=== PATIENT | female | born 1975 | race Caucasian/White ===

== ENCOUNTER 2017-08-14 18:55 | Emergency (ER) | payer BC ==
[2017-08-14 19:05] VITALS: BP 121/71
[2017-08-14] MEDS ORDERED: Acetaminophen/HYDROcodone 325-5 MG Tab PO ONE (19:13)
[2017-08-14] MEDS ORDERED: Diphtheria,Pertussis(Acell),Tetanus Vaccine 0.5 ML SDV IM ONE (19:13)
--- NOTE | 2017-08-14 19:32 | EDM.PDOC ---
ED HPI GENERAL MEDICAL PROBLEM - General Chief Complaint: Upper Extremity Injury/Pain Stated Complaint: poss arm injury Time Seen by Provider: 08/14/17 19:07 Source of Information: Reports: Patient, RN Notes Reviewed - History of Present Illness INITIAL COMMENTS - FREE TEXT/NARRATIVE: 42-year-old female suffered dogbite injury left forearm. Her son's dog and her dog got into a fight. She tried to break it up and her own dog, a boxer bit her on the left forearm. She also ended up falling onto the arm so she has pain from the bite and from the fall. Major discomfort is in the area of the bite dorsal midforearm. Her dog is up-to-date with rabies. She has no idea of her last tetanus immunization. No other pain or injury from this incident Left Arm Pain Score (Numeric/FACES): 7 - Related Data Allergies Allergy/AdvReac Type Severity Reaction Status Date / Time Penicillins Allergy Hives Verified 08/14/17 19:02 bandaide Allergy Itching Uncoded 08/14/17 19:02 tequin Allergy Hives Uncoded 08/14/17 19:02 Home Meds: Home Meds Estradiol [Climara] 0.05 mg TOP SUWE 01/31/15 [History] FLUoxetine [PROzac] 0 mg PO DAILY 01/31/15 [History] Hydrochlorothiazide 25 mg PO DAILY 01/31/15 [History] Doxycycline [Vibramycin] 100 mg PO Q12HR #20 cap 08/14/17 [Rx] Past Medical History Musculoskeletal History: Reports: RA Psychiatric History: Reports: Depression Endocrine/Metabolic History: Reports: Diabetes, Type I Social & Family History - Tobacco Use Smoking Status *Q: Never Smoker Second Hand Smoke Exposure: No - Alcohol Use Days Per Week of Alcohol Use: 1 Number of Drinks Per Day: 1 Total Drinks Per Week: 1 - Recreational Drug Use Recreational Drug Use: No Review of Systems - Review of Systems Review Of Systems: See Below Constitutional: Reports: No Symptoms Respiratory: Denies: Shortness of Breath Cardiovascular: Denies: Chest Pain GI/Abdominal: Denies: Nausea, Vomiting Musculoskeletal: Reports: Arm Pain (Left midforearm) Skin: Reports: Other (To bite puncture [place] left midforearm) Neurological: Denies: Numbness, Tingling, Weakness ED EXAM, GENERAL - Physical Exam Exam: See Below General Appearance: Alert, Moderate Distress Head: Atraumatic Neck: Supple, Full Range of Motion Respiratory/Chest: No Respiratory Distress Peripheral Pulses: 4+: Radial (L) Extremities: Other (2 puncture bite wounds to left forearm, small, not bleeding at this time, localized swelling and tenderness left mid forearm, no visible deformity.) Neurological: Alert, Oriented, No Motor/Sensory Deficits Skin Exam: Warm, Dry, Normal Color Course - Vital Signs Last Recorded V/S: Last Vital Signs Temp 97.6 F 08/14/17 19:02 Pulse 102 H 08/14/17 19:02 Resp BP 121/71 08/14/17 19:02 Pulse Ox 100 08/14/17 19:02 - Orders/Labs/Meds Orders: Active Orders 24 hr Category Date Time Status Vaccines to be Administered [RC] PER UNIT ROUTINE Care 08/14/17 19:14 Active Forearm 2V Lt [CR] Stat Exams 08/14/17 19:14 Taken Meds: Medications Discontinued Medications Generic Name Dose Route Start Last Admin Trade Name Maricruz PRN Reason Stop Dose Admin Hydrocodone Bitart/Acetaminophen 1 tab 08/14/17 19:13 08/14/17 19:30 [place] 325-5 Mg PO 08/14/17 19:14 1 tab ONETIME ONE Administration Diphtheria/Tetanus/Acell Pertussis 0.5 ml 08/14/17 19:13 08/14/17 19:30 Adacel IM 08/14/17 19:14 0.5 ml .ONCE ONE Administration - Re-Assessments/Exams Free Text/Narrative Re-Assessment/Exam: 08/14/17 19:48 X-rays no fracture Departure - Departure Time of Disposition: 19:48 Disposition: Home, Self-Care 01 Condition: Fair Clinical Impression: Injury caused by dog bite Qualifiers: Encounter type: initial encounter Qualified Code(s): W54.0XXA - Bitten by dog, initial encounter - Discharge Information Prescriptions: Doxycycline [Vibramycin] 100 mg PO Q12HR #20 cap Referrals: PCP,None [Primary Care Provider] - Forms: ED Department Discharge Additional Instructions: Antibiotic ointment 2-3 times daily, Doxycycline 100 mg twice daily for 10 days or until gone, you may alternate Tylenol and ibuprofen as needed for discomfort , have rechecked any sign of infection. Swelling and discomfort should gradually improve over the next 2-3 days. - My Orders Last 24 Hours: My Active Orders 08/14/17 19:14 Vaccines to be Administered [RC] PER UNIT ROUTINE Forearm 2V Lt [CR] Stat - Assessment/Plan Last 24 Hours: My Active Orders 08/14/17 19:14 Vaccines to be Administered [RC] PER UNIT ROUTINE Forearm 2V Lt [CR] Stat
--- NOTE | 2017-08-15 06:56 | CR ---
Left forearm: Two views of the left forearm were obtained. Comparison: No previous forearm study. Soft tissue swelling is identified. No acute fracture or other bony abnormality is identified. Impression: 1. Soft tissue swelling. 2. No bony abnormality is identified on left forearm study. Diagnostic code #2
== END 2017-08-14 20:15 | disposition home or self-care (01) ==
LOC: JD.ED 18:55
DX: S51.852A Open bite of left forearm, initial encounter (principal); Z88.0 Allergy status to penicillin; Z79.899 Other long term (current) drug therapy; Z23 Encounter for immunization; W54.0XXA Bitten by dog, initial encounter
CPT/HCPCS: 73090; 90471; 90715; 99284; A9270; 99283

== ENCOUNTER 2018-06-05 19:09 | Emergency (ER) | payer BC ==
[2018-06-05 19:28] VITALS: BP 134/91
--- NOTE | 2018-06-05 19:41 | EDM.PDOC ---
ED HPI GENERAL MEDICAL PROBLEM - General Chief Complaint: Respiratory Problem Stated Complaint: ear pain sore throat congestion Time Seen by Provider: 06/05/18 19:13 Source of Information: Reports: Patient History Limitations: Reports: No Limitations - History of Present Illness INITIAL COMMENTS - FREE TEXT/NARRATIVE: Patient with history of rheumatoid arthritis on Humira and methotrexate presents with onset of sinus pain mattery discharge to the right eye along with now cough and sore throat. She is concerned that she is developed worsening symptoms fairly rapidly over the last 24 hours and with her immune system dysfunction wants to make sure she has any more serious infection. She has some underlying exercise-induced asthma and has a harsh cough although nonproductive. She denies any fevers chills or sweats. Does feels sometimes lightheaded when she changes position but no syncope or near syncope. Some sore throat and feels like fluid in her ears left side greater than the right. She has tenderness in the area of the right maxilla and is having congestion 2 both sides of her nose. She occasionally uses Sudafed and has triamcinolone nose spray without much relief. She also has a history of diabetes on metformin. No shortness of breath no nausea vomiting or diarrhea no bowel changes no burning pain or blood in the urine. - Related Data Allergies Allergy/AdvReac Type Severity Reaction Status Date / Time adhesive Allergy Itching Verified 11/15/17 09:47 gatifloxacin Allergy Hives Verified 11/15/17 09:46 Penicillins Allergy Hives Verified 08/14/17 19:02 Home Meds: Home Meds Estradiol [Climara] 0.1 mg TOP SUWE 01/31/15 [History] Adalimumab [Humira Pen] 40 mg INJECT ASDIRECTED 06/05/18 [History] Albuterol [Ventolin HFA] 2 puff .XX Q4HR PRN #1 inhaler 06/05/18 [Rx] Codeine/Promethazine [Phenergan with Codeine] 5 ml PO Q4HR PRN #240 ml 06/05/18 [Rx] Gabapentin [Neurontin] 600 mg PO BEDTIME 06/05/18 [History] Lisinopril/Hydrochlorothiazide [Lisinopril-HCTZ 10-12.5 MG] 1 tab PO DAILY 06/05 [History] Lysine HCl [l-Lysine] 500 mg PO BEDTIME 06/05/18 [History] Meloxicam 15 mg PO DAILY 06/05/18 [History] Methotrexate Sodium [Methotrexate] 2.5 mg PO FR 06/05/18 [History] Simvastatin 20 mg PO BEDTIME 06/05/18 [History] Sulfamethoxazole/Trimethoprim [Septra DS] 1 tab PO BID #20 tab 06/05/18 [Rx] Venlafaxine HCl [Venlafaxine ER] 150 mg PO DAILY 06/05/18 [History] metFORMIN [Glucophage XR] 500 mg PO BEDTIME 06/05/18 [History] methylPREDNISolone [Medrol] 4 mg PO DAILY #1 dospk 06/05/18 [Rx] Past Medical History HEENT History: Reports: Sinusitis Cardiovascular History: Reports: High Cholesterol, Hypertension Musculoskeletal History: Reports: RA Psychiatric History: Reports: Depression Endocrine/Metabolic History: Reports: Diabetes, Type I ED ROS GENERAL - Review of Systems Review Of Systems: See Below Constitutional: Reports: Fatigue. Denies: Fever, Chills, Weakness HEENT: Reports: Ear Pain, Eye Discharge, Rhinitis, Sinus Problem, Throat Pain. Denies: Throat Swelling Respiratory: Reports: Cough. Denies: Shortness of Breath, Wheezing, Sputum Cardiovascular: Denies: Chest Pain GI/Abdominal: Denies: Abdominal Pain, Diarrhea, Nausea, Vomiting : Denies: Dysuria, Frequency Neurological: Denies: Headache ED EXAM, GENERAL - Physical Exam Exam: See Below Exam Limited By: No Limitations General Appearance: Alert, WD/WN, No Apparent Distress Ears: Normal External Exam, Normal Canal, Other (Fluid behind both eardrums but no signs of any redness) Ear Exam: Left Ear: Tenderness Nose: Nasal Tenderness, Nasal Swelling, Other (Inflammation to both turbinates bilateral nares. She also has right maxillary sinus tenderness) Throat/Mouth: Normal Inspection, Normal Teeth, Normal Gums, Normal Oropharynx, Normal Voice, No Airway Compromise Neck: Normal Inspection, Supple. No: Lymphadenopathy (L), Lymphadenopathy (R) Respiratory/Chest: No Respiratory Distress, Lungs Clear, Normal Breath Sounds, Rhonchi. No: Rales, Wheezing Cardiovascular: Normal Peripheral Pulses, Regular Rate, Rhythm GI/Abdominal: Normal Bowel Sounds, Soft, Non-Tender Neurological: Alert, Oriented Psychiatric: Normal Affect, Normal Mood Skin Exam: Warm, Dry Course - Vital Signs Text/Narrative:: Patient was a history of underlying immune dysfunction on Humira methotrexate for rheumatoid arthritis and diabetes on metformin presents with worsening symptoms in last 24-36 hours. 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 Said to have her next Humira injection this week and is concerned for serious infection. I do believe she does have what looks like some right sinus infection greater than the left and maybe early bronchitis with wheezing. Feel the benefits of an approximately the risks in light of her mean dysfunction. We'll place her on Bactrim DS twice a day for 10 days, cough syrup Phenergan with codeine elixir, albuterol inhaler , Medrol Dosepak. Off work tomorrow. Follow-up with primary care physician later this week, return to caution given Last Recorded V/S: Last Vital Signs Temp 98.0 F 06/05/18 19:27 MDT Pulse 107 H 06/05/18 19:27 MDT Resp 20 06/05/18 19:27 MDT BP 134/91 H 06/05/18 19:27 MDT Pulse Ox 100 06/05/18 19:27 MDT Departure - Departure Time of Disposition: 19:41 Disposition: Home, Self-Care 01 Clinical Impression: Sinusitis Qualifiers: Sinusitis location: maxillary Chronicity: acute Recurrence: non-recurrent Qualified Code(s): J01.00 - Acute maxillary sinusitis, unspecified Upper respiratory infection Qualifiers: URI type: unspecified URI Qualified Code(s): J06.9 - Acute upper respiratory infection, unspecified - Discharge Information Prescriptions: Albuterol [Ventolin HFA] 2 puff .XX Q4HR PRN #1 inhaler PRN Reason: Cough Codeine/Promethazine [Phenergan with Codeine] 5 ml PO Q4HR PRN #240 ml PRN Reason: Cough methylPREDNISolone [Medrol] 4 mg PO DAILY #1 dospk Sulfamethoxazole/Trimethoprim [Septra DS] 1 tab PO BID #20 tab Instructions: Asthma, Adult, Sinusitis, Adult, Acute Bronchitis, Adult, Easy-to -Read Referrals: PCP,None [Primary Care Provider] - Forms: ED Department Discharge, ED Return to Work/School Form Additional Instructions: Restaurant 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
== END 2018-06-05 20:00 | disposition home or self-care (01) ==
LOC: JD.ED 19:09
DX: J01.00 Acute maxillary sinusitis, unspecified (principal); J06.9 Acute upper respiratory infection, unspecified; I10 Essential (primary) hypertension; E10.9 Type 1 diabetes mellitus without complications; Z79.84 Long term (current) use of oral hypoglycemic drugs; Z88.0 Allergy status to penicillin; Z91.09 Other allergy status, other than to drugs and biological substances; Z88.1 Allergy status to other antibiotic agents; Z79.899 Other long term (current) drug therapy
CPT/HCPCS: 99283

== ENCOUNTER 2018-10-02 17:34 | Emergency (ER) | payer BC ==
[2018-10-02 17:46] VITALS: BP 147/91
--- NOTE | 2018-10-02 18:09 | EDM.PDOC ---
ED HPI GENERAL MEDICAL PROBLEM - General Chief Complaint: ENT Problem Stated Complaint: SORES IN EARS AND ON HANDS AND NOW HEAD CONGESTION Time Seen by Provider: 10/02/18 17:52 Source of Information: Reports: Patient History Limitations: Reports: No Limitations - History of Present Illness INITIAL COMMENTS - FREE TEXT/NARRATIVE: 43 year old female presents for evaluation and treatment of a sores to the left auricle and finger and sinus congestion. Patient first appreciated swelling, erythema and soreness to the left auricle in mid August. Denies any drainage from the area. Patient has also appreciated sore to the left ring finger over the last week. Does not recall any injury. Reports the areas on the finger will bleed and weep a clear serous fluid occasionally. Patient also reports for the few days she has developed cough, congestion, and post nasal drip. Patient reports she gets sinus infections every few months. Review of her records she was seen in the ER in June for a sinus infection. She was prescribed bactrim, albuterol, cough syrup and a medrol dos santosh. Currently symptoms include post nasal drip, cough, congestion or sinus pressure. Denies any fevers or headaches. Reports she has had sinus surgery previously for her chronic sinus problems. Patient has a past medical history and is currently on methotrexate and embral for her RA. She is concerned about the infections as she is immunocompromised. Left 4-Ring finger Pain Score (Numeric/FACES): 3 - Related Data Allergies Allergy/AdvReac Type Severity Reaction Status Date / Time adhesive Allergy Itching Verified 10/02/18 17:47 gatifloxacin Allergy Hives Verified 10/02/18 17:47 Penicillins Allergy Hives Verified 10/02/18 17:47 Home Meds: Home Meds Estradiol [Climara] 0.1 mg TOP SUWE 01/31/15 [History] Albuterol [Ventolin HFA] 2 puff .XX Q4HR PRN #1 inhaler 06/05/18 [Rx] Codeine/Promethazine [Phenergan with Codeine] 5 ml PO Q4HR PRN #240 ml 06/05/18 [Rx] Gabapentin [Neurontin] 600 mg PO BEDTIME 06/05/18 [History] Lisinopril/Hydrochlorothiazide [Lisinopril-HCTZ 10-12.5 MG] 1 tab PO DAILY 06/05 [History] Lysine HCl [l-Lysine] 500 mg PO BEDTIME 06/05/18 [History] Meloxicam 15 mg PO DAILY 06/05/18 [History] Methotrexate Sodium [Methotrexate] 2.5 mg PO FR 06/05/18 [History] Simvastatin 20 mg PO BEDTIME 06/05/18 [History] Venlafaxine HCl [Venlafaxine ER] 150 mg PO DAILY 06/05/18 [History] metFORMIN [Glucophage XR] 500 mg PO BEDTIME 06/05/18 [History] methylPREDNISolone [Medrol] 4 mg PO DAILY #1 dospk 06/05/18 [Rx] Doxycycline [Vibramycin] 100 mg PO BID #20 cap 10/02/18 [Rx] Etanercept [Enbrel] 1 dose SUBCUT WEEKLY 10/02/18 [History] Past Medical History HEENT History: Reports: Sinusitis Cardiovascular History: Reports: High Cholesterol, Hypertension [employer] History: Reports: Musculoskeletal History: Reports: RA Psychiatric History: Reports: Depression Endocrine/Metabolic History: Reports: Diabetes, Type I - Past Surgical History GI Surgical History: Reports: Appendectomy, Bariatric Procedure Female Surgical History: Reports: Section, Hysterectomy Social & Family History - Tobacco Use Smoking Status *Q: Never Smoker Second Hand Smoke Exposure: No - Caffeine Use Caffeine Use: Reports: Tea ED ROS ENT - Review of Systems Review Of Systems: See Below Constitutional: Denies: Fever HEENT: Reports: Ear Pain (left auricle), Sinus Problem. Denies: Ear Discharge, Throat Pain Respiratory: Reports: Cough Neurological: Denies: Headache ED EXAM, ENT - Physical Exam Exam: See Below Exam Limited By: No Limitations General Appearance: Alert, WD/WN, No Apparent Distress Ears: Normal Canal, Normal TMs, Auricular Erythema (left just superior to the meatus with associated swelling), Auricular Tenderness (left). No: Mastoid Swelling, Mastoid Tenderness, TM Bulging, TM Fluid Nose: Normal Inspection Mouth/Throat: Normal Inspection, Normal Lips, Normal Oropharynx Head: Sinus Tenderness (bilteral frontal and maxillary) Neck: Normal Inspection. No: Lymphadenopathy (L), Lymphadenopathy (R) Respiratory/Chest: No Respiratory Distress, Lungs Clear, Normal Breath Sounds Cardiovascular: Normal Peripheral Pulses, Regular Rate, Rhythm, No Murmur Extremities: Other (2 sores to the left 4th finger ulnar aspect, both approximately 1cm in lenth, slight surrounding pink skin changes, no swelling or drainage, slight tenderness wiht palpation) Neurological: Alert, Oriented, Normal Cognition Psychiatric: Normal Affect, Normal Mood Skin: Warm, Dry, Normal Color Course - Vital Signs Last Recorded V/S: Last Vital Signs Temp 97.1 F 10/02/18 17:41 Pulse 82 10/02/18 17:41 Resp 15 10/02/18 17:41 BP 147/91 H 10/02/18 17:41 Pulse Ox 100 10/02/18 17:41 - Re-Assessments/Exams Free Text/Narrative Re-Assessment/Exam: 10/02/18 18:03 Will treat with doxycycline for cellulites to the left auricle. This will also cover for a sinus infection if she has developed one. Discharge instructions as documented. Departure - Departure Time of Disposition: 18:06 Disposition: Home, Self-Care 01 Condition: Fair Clinical Impression: Cellulitis Upper respiratory infection Qualifiers: URI type: unspecified URI Qualified Code(s): J06.9 - Acute upper respiratory infection, unspecified - Discharge Information *PRESCRIPTION DRUG MONITORING PROGRAM REVIEWED*: No *COPY OF PRESCRIPTION DRUG MONITORING REPORT IN PATIENT PATRICIA: No Prescriptions: Doxycycline [Vibramycin] 100 mg PO BID #20 cap Instructions: Cellulitis, Adult Referrals: Susy Duarte MD [Primary Care Provider] - Forms: ED Department Discharge Additional Instructions: Take the doxycycline as prescribed 1 cap PO bid x 10 days. Take with food. May take OTC tylenol or motrin as needed for headaches and discomfort. Drink plenty of fluids . Follow-up with PCP or Sunday next week for a recheck of your symptoms. Please return to the ER should your symptoms change or worsen.
== END 2018-10-02 18:14 | disposition home or self-care (01) ==
LOC: JD.ED 17:34
DX: H60.12 Cellulitis of left external ear (principal); J06.9 Acute upper respiratory infection, unspecified; E78.00 Pure hypercholesterolemia, unspecified; I10 Essential (primary) hypertension; E10.9 Type 1 diabetes mellitus without complications; Z88.0 Allergy status to penicillin; Z88.1 Allergy status to other antibiotic agents; Z79.899 Other long term (current) drug therapy
CPT/HCPCS: 99283

== ENCOUNTER 2019-09-19 16:06 | Emergency (ER) | payer BC ==
--- NOTE | 2019-09-19 16:11 | EDM.PDOC ---
ED HPI GENERAL MEDICAL PROBLEM - General Chief Complaint: Respiratory Problem Stated Complaint: SORE THROAT Time Seen by Provider: 09/19/19 16:40 Source of Information: Reports: Patient History Limitations: Reports: No Limitations - History of Present Illness INITIAL COMMENTS - FREE TEXT/NARRATIVE: Patient is a 44-year-old female who presents with complaints of sore throat, chest congestion, loss of voice, and shortness of breath. She states that the symptoms began on Sunday of this week. She did see her primary care provider, Angie Louise, on Sunday and was told that she should follow-up if symptoms do not improve by Sunday. She states the symptoms have gotten progressively worse since Sunday. She verbalizes that the pain is deep in her throat and feels like razor blades when she coughs. She has been taking Sudafed, Rhinocort, and albuterol inhaler for symptoms. She does have a history of asthma. Denies fever, chills, nausea, vomiting, or diarrhea. She did have a flu shot this year. Patient does have RA and is on Enbrel. - Related Data Allergies Allergy/AdvReac Type Severity Reaction Status Date / Time adhesive Allergy Itching Verified 10/02/18 17:47 gatifloxacin Allergy Hives Verified 10/02/18 17:47 hydroxychloroquine Allergy Rash Verified 04/09/19 11:35 Penicillins Allergy Hives Verified 10/02/18 17:47 tetracaine [From Tetcaine] Allergy Hives Verified 09/19/19 16:20 Home Meds: Home Meds estradioL [Climara] 0.1 mg TOP SUWE 01/31/15 [History] Albuterol [Ventolin HFA] 2 puff .XX Q4HR PRN #1 inhaler 06/05/18 [Rx] Codeine/Promethazine [Phenergan with Codeine] 5 ml PO Q4HR PRN #240 ml 06/05/18 [Rx] Gabapentin [Neurontin] 600 mg PO BEDTIME 06/05/18 [History] Lisinopril/Hydrochlorothiazide [Lisinopril-HCTZ 10-12.5 MG] 1 tab PO DAILY 06/05 [History] Lysine HCl [l-Lysine] 500 mg PO BEDTIME 06/05/18 [History] Meloxicam 15 mg PO DAILY 06/05/18 [History] Methotrexate Sodium [Methotrexate] 2.5 mg PO FR 06/05/18 [History] Simvastatin 20 mg PO BEDTIME 06/05/18 [History] Venlafaxine HCl [Venlafaxine ER] 150 mg PO DAILY 06/05/18 [History] metFORMIN [Glucophage XR] 500 mg PO BEDTIME 06/05/18 [History] methylPREDNISolone [Medrol] 4 mg PO DAILY #1 dospk 06/05/18 [Rx] Doxycycline [Vibramycin] 100 mg PO BID #20 cap 10/02/18 [Rx] Etanercept [Enbrel] 1 dose SUBCUT WEEKLY 10/02/18 [History] dexAMETHasone [Dexamethasone] 4 mg PO BID 5 Days #10 tab 09/19/19 [Rx] Past Medical History HEENT History: Reports: Sinusitis Cardiovascular History: Reports: High Cholesterol, Hypertension 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: Reports: RA Psychiatric History: Reports: Depression Endocrine/Metabolic History: Reports: Diabetes, Type I - Past Surgical History GI Surgical History: Reports: Appendectomy, Bariatric Procedure Female Surgical History: Reports: Section, Hysterectomy Social & Family History - Caffeine Use Caffeine Use: Reports: Tea ED ROS ENT - Review of Systems Review Of Systems: See Below Constitutional: Denies: Fever, Chills HEENT: Reports: Ear Pain, Rhinitis, Throat Pain Respiratory: Reports: Shortness of Breath, Pleuritic Chest Pain, Cough Cardiovascular: Reports: No Symptoms Endocrine: Reports: No Symptoms GI/Abdominal: Reports: No Symptoms. Denies: Abdominal Pain, Diarrhea, Nausea, Vomiting : Reports: No Symptoms Musculoskeletal: Reports: No Symptoms Skin: Reports: No Symptoms Neurological: Reports: No Symptoms Psychiatric: Reports: No Symptoms Hematologic/Lymphatic: Reports: No Symptoms Immunologic: Reports: No Symptoms ED EXAM, ENT - Physical Exam Exam: See Below Exam Limited By: No Limitations General Appearance: Alert, WD/WN, Mild Distress Ears: Normal External Exam, Hearing Grossly Normal, TM Fluid. No: TM Bulging, TM Erythema Nose: Clear Rhinorrhea Mouth/Throat: Normal Inspection, Normal Oropharynx. No: Pharyngeal Erythema Respiratory/Chest: No Respiratory Distress, Chest Non-Tender, Wheezing ( expiratory throughout), Other (tight sounding upper airway) Cardiovascular: Normal Peripheral Pulses, Regular Rate, Rhythm, No Edema, No Murmur GI/Abdominal: Normal Bowel Sounds, Soft, Non-Tender, No Distention Neurological: Alert, Oriented, Normal Cognition Psychiatric: Normal Affect, Anxious Skin: Warm, Dry, Intact, Normal Color, No Rash Course - Vital Signs Last Recorded V/S: Last Vital Signs Temp 98.2 F 09/19/19 16:27 Pulse 91 09/19/19 16:27 Resp 22 H 09/19/19 16:27 BP 153/95 H 09/19/19 16:27 Pulse Ox 99 09/19/19 16:44 - Orders/Labs/Meds Orders: Active Orders 24 hr Category Date Time Status RT Aerosol Therapy [RC] ASDIRECTED Care 09/19/19 16:44 Active Chest 2V [CR] Stat Exams 09/19/19 16:43 Taken Meds: Medications Discontinued Medications Generic Name Dose Route Start Last Admin Trade Name Maricruz PRN Reason Stop Dose Admin Albuterol/Ipratropium 3 ml 09/19/19 16:44 09/19/19 17:08 Duoneb 3.0-0.5 Mg/3 Ml NEB 09/19/19 16:45 3 ml ONETIME ONE Administration Dexamethasone 10 mg 09/19/19 16:48 09/19/19 16:59 Dexamethasone PO 09/19/19 16:49 10 mg ONETIME ONE Administration - Re-Assessments/Exams Free Text/Narrative Re-Assessment/Exam: On exam, patient's symptoms seem to be localized to the upper airways and trachea. She verbalizes that her "throat" pain is not in the oropharynx, but further down which is more likely associated tracheal irritation. There is no erythema noted to the oropharynx. She does have harsh sounding upper airway sounds and a slight expiratory wheeze throughout her lung medina. Her voice is very diminished, she has to whisper to communicate. I have ordered a DuoNeb, oral dexamethasone, 2 view chest x-ray, and an influenza swab. 09/19/19 17:38 Patient verbalizes significant relief of symptoms after the dexamethasone and DuoNeb. Chest x-ray is negative for any infiltrates but does show slight upper airway narrowing consistent with laryngitis. Influenza was negative. We will discharge the patient home with oral dexamethasone for the next 3 days. She can also continue using her albuterol inhaler as well as her Phenergan with codeine cough syrup that she has at home. Departure - Departure Time of Disposition: 17:39 Disposition: Home, Self-Care 01 Condition: Fair Clinical Impression: Laryngitis, acute, Acute asthma - Discharge Information *PRESCRIPTION DRUG MONITORING PROGRAM REVIEWED*: No *COPY OF PRESCRIPTION DRUG MONITORING REPORT IN PATIENT PATRICIA: No Prescriptions: dexAMETHasone [Dexamethasone] 4 mg PO BID 5 Days #10 tab Instructions: Asthma, Adult, Laryngitis, [id number] Referrals: Susy Duaret MD [Primary Care Provider] - Forms: ED Department Discharge Additional Instructions: You were seen in the emergency department tonight with complaints of chest congestion, shortness of breath, sore throat, and voice loss. Your assessment findings were consistent with acute viral laryngitis as well as a mild asthma exacerbation. Your influenza swab was negative and your chest x-ray was clear with no signs of pneumonia. He did receive 10 mg of oral dexamethasone which is a steroid in the emergency department as well as a DuoNeb breathing treatment. He did verbalize relief after these medications. A prescription for dexamethasone 4 mg twice daily x 5 days has been sent to [facility]. Continue to use your albuterol, cough syrup, and Nasocort as needed. Over the counter Mucinex may also be beneficial for you. We would recommend that you follow-up in the clinic for a recheck next week or return to the ER if your symptoms should worsen in any way. Sepsis Event Note - Focused Exam Vital Signs: Vital Signs Temp Pulse Resp BP Pulse Ox Pulse Ox 09/19/19 16:44 99 09/19/19 16:27 98.2 F 91 22 H 153/95 H 100 Date Exam was Performed: 09/19/19 Time Exam was Performed: 18:27 - My Orders Last 24 Hours: My Active Orders 09/19/19 16:43 Chest 2V [CR] Stat 09/19/19 16:44 RT Aerosol Therapy [RC] ASDIRECTED - Assessment/Plan Last 24 Hours: My Active Orders 09/19/19 16:43 Chest 2V [CR] Stat 09/19/19 16:44 RT Aerosol Therapy [RC] ASDIRECTED
[2019-09-19 16:33] VITALS: BP 153/95; PULSE 91
[2019-09-19] MEDS ORDERED: Albuterol/Ipratropium 3.0-0.5 MG/3 ML Neb Soln NEB ONE (16:44)
[2019-09-19] MEDS ORDERED: Dexamethasone 4 MG Tab PO ONE (16:48)
--- NOTE | 2019-09-20 11:38 | CR ---
Chest: Two views of the chest were obtained. Comparison: No prior chest imaging is available. Heart size and mediastinum are normal. Lungs are clear. Bony structures show scoliosis within the spine. Impression: 1. Findings as noted above. Nothing acute is seen. Diagnostic code #2 This report was dictated in Mountain Standard Time
== END 2019-09-19 18:16 | disposition home or self-care (01) ==
LOC: JD.ED 16:06
DX: J45.909 Unspecified asthma, uncomplicated (principal); J04.0 Acute laryngitis; I10 Essential (primary) hypertension; E10.9 Type 1 diabetes mellitus without complications; E78.00 Pure hypercholesterolemia, unspecified; M06.9 Rheumatoid arthritis, unspecified; F32.9 Major depressive disorder, single episode, unspecified; Z88.0 Allergy status to penicillin; Z88.8 Allergy status to other drugs, medicaments and biological substances; Z91.048 Other nonmedicinal substance allergy status; Z79.899 Other long term (current) drug therapy; Z79.84 Long term (current) use of oral hypoglycemic drugs
CPT/HCPCS: 71046; 87804; 94640; 99285; J8540; 99283; J7620-GY

== ENCOUNTER 2020-12-11 12:17 | Emergency (ER) | payer BC ==
[2020-12-11 12:56] VITALS: BP 132/100; PULSE 103
[2020-12-11] MEDS ORDERED: HYDROmorphone 0.5 MG/0.5 ML Syringe IM ONE (13:48)
--- NOTE | 2020-12-11 13:56 | EDM.PDOC ---
ED HPI GENERAL MEDICAL PROBLEM - General Chief Complaint: Lower Extremity Injury/Pain Stated Complaint: R LEG LAC Time Seen by Provider: 12/11/20 13:35 Source of Information: Reports: Patient, RN Notes Reviewed History Limitations: Reports: No Limitations - History of Present Illness INITIAL COMMENTS - FREE TEXT/NARRATIVE: Patient is a 45-year-old female who presents to the ED for a right leg abrasion. Patient notes she was moving a large metal cart full of eggs, when she stumbled and scraped her right see on the cart. Patient states that there is quite a bit of pain, and some swelling with a little bit of bruising apparent as well. Patient not really sure of her last tetanus booster but states it was last updated here. She did not take anything for pain management prior to coming to the ER. She has no numbness or tingling into her toes. Patient denies any other sick-like symptoms, fever/chills, cough/shortness of breath, nausea/vomiting/diarrhea. The abrasion is fairly superficial, and measures 18 cm in length, and it runs pretty much the length of her anterior see. Right Lower Leg Pain Score (Numeric/FACES): 10 - Related Data Allergies Allergy/AdvReac Type Severity Reaction Status Date / Time adhesive Allergy Itching Verified 12/11/20 12:56 gatifloxacin Allergy Hives Verified 12/11/20 12:56 hydroxychloroquine Allergy Rash Verified 12/11/20 12:56 Penicillins Allergy Hives Verified 12/11/20 12:56 tetracaine [From Tetcaine] Allergy Hives Verified 12/11/20 12:56 Home Meds: Home Meds estradioL [Climara] 0.1 mg TOP SUWE 01/31/15 [History] Albuterol [Ventolin HFA] 2 puff .XX Q4HR PRN #1 inhaler 06/05/18 [Rx] Codeine/Promethazine [Phenergan with Codeine] 5 ml PO Q4HR PRN #240 ml 06/05/18 [Rx] Gabapentin [Neurontin] 600 mg PO BEDTIME 06/05/18 [History] Lisinopril/Hydrochlorothiazide [Lisinopril-HCTZ 10-12.5 MG] 1 tab PO DAILY 0 06/05/18 [History] Lysine HCl [l-Lysine] 500 mg PO BEDTIME 06/05/18 [History] Meloxicam 15 mg PO DAILY 06/05/18 [History] Simvastatin 20 mg PO BEDTIME 06/05/18 [History] Venlafaxine HCl [Venlafaxine ER] 150 mg PO DAILY 06/05/18 [History] metFORMIN [Glucophage XR] 500 mg PO BEDTIME 06/05/18 [History] metHOTREXate sodium [Methotrexate] 2.5 mg PO FR 06/05/18 [History] methylPREDNISolone [Medrol] 4 mg PO DAILY #1 dospk 06/05/18 [Rx] Doxycycline [Vibramycin] 100 mg PO BID #20 cap 10/02/18 [Rx] Etanercept [Enbrel] 1 dose SUBCUT WEEKLY 10/02/18 [History] dexAMETHasone [Dexamethasone] 4 mg PO BID 5 Days #10 tab 09/19/19 [Rx] Acetaminophen/HYDROcodone [[place] 325-5 MG] 1 tab PO Q6H PRN #15 tablet 12/11/20 [Rx] Past Medical History HEENT History: Reports: Sinusitis Other HEENT History: Glasses, hearing aids Cardiovascular History: Reports: High Cholesterol, Hypertension 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 Psychiatric History: Reports: Depression Endocrine/Metabolic History: Reports: Diabetes, Type I - Infectious Disease History Infectious Disease History: Reports: Chicken Pox - Past Surgical History HEENT Surgical History: Reports: Adenoidectomy, Naso-Sinus Surgery, Tonsillectomy GI Surgical History: Reports: Appendectomy, Bariatric Procedure Female Surgical History: Reports: Section, Hysterectomy Social & Family History - Tobacco Use Tobacco Use Status *Q: Never Tobacco User Second Hand Smoke Exposure: No - Caffeine Use Caffeine Use: Reports: Tea - Recreational Drug Use Recreational Drug Use: No Review of Systems - Review of Systems Review Of Systems: Comprehensive ROS is negative, except as noted in HPI. ED EXAM, GENERAL - Physical Exam Exam: See Below Exam Limited By: No Limitations General Appearance: Alert, WD/WN, No Apparent Distress Respiratory/Chest: No Respiratory Distress, Lungs Clear, Normal Breath Sounds, No Accessory Muscle Use, Chest Non-Tender Cardiovascular: Normal Peripheral Pulses, Regular Rate, Rhythm, No Edema Peripheral Pulses: 2+: Radial (L), Radial (R) Extremities: Normal Range of Motion, Normal Capillary Refill Neurological: Alert, Oriented, Normal Cognition, No Motor/Sensory Deficits Psychiatric: Normal Affect, Normal Mood Skin Exam: Warm, Dry, Normal Color, No Rash, Ecchymosis (slight around the abrasion), Wound/Incision (18cm superficial linear abrasion to the R anterior see) Course - Vital Signs Last Recorded V/S: Last Vital Signs Temp 97.4 F 12/11/20 12:52 Pulse 103 H 12/11/20 12:52 Resp 16 12/11/20 12:52 BP 132/100 H 12/11/20 12:52 Pulse Ox 99 12/11/20 12:52 - Orders/Labs/Meds Orders: Active Orders 24 hr Category Date Time Status HYDROmorphone [Dilaudid] Med 12/11/20 13:48 Once 0.5 mg IM ONETIME ONE - Re-Assessments/Exams Free Text/Narrative Re-Assessment/Exam: 12/11/20 13:52 Patient presents to the ED for her right see abrasion. We will go ahead and give her a 0.5 mg IM injection of Dilaudid as she states is fairly painful and cannot really move her leg much at all due to the pain. The wound itself is not deep enough to require laceration repair by sutures. I did go over general conservative management with her and will provide her a prescription for [place] tablets for pain not relieved by Tylenol alone. Patient verbalized understanding. Departure - Departure Time of Disposition: 13:53 Disposition: Home, Self-Care 01 Condition: Good Clinical Impression: Abrasion, right lower leg, initial encounter - Discharge Information *PRESCRIPTION DRUG MONITORING PROGRAM REVIEWED*: Yes *COPY OF PRESCRIPTION DRUG MONITORING REPORT IN PATIENT PATRICIA: No Instructions: Abrasion, [id number] Referrals: Susy Duarte MD [Primary Care Provider] - Additional Instructions: You were seen in the ER today for your right see abrasion. This area will likely swell over the next few days, however if you develop some numbness or tingling into your foot, or lose sensation in your foot/cannot feel your pulse on the top of your foot, that would be cause for concern to return to the ER for immediate management. You will also likely have quite a bit of bruising to the area due to the amount of trauma incurred at today's injury. Highly recommend you keep the leg elevated as much as possible, and do some calf pumps throughout the day to provide blood flow through the leg to help guard against blood clots. Recommend to use ice packs to the area to provide some relief from swelling. Recommend you use 500 mg Tylenol every 6 hours as needed for further pain relief, you were given a prescription for a strong pain medication, hydrocodone/acetaminophen 5/325 mg., please take 1 tab every 6 hours as needed for pain not relieved by Tylenol or ibuprofen alone. Please note this medication does contain Tylenol in it, so do not take more than 4000 mg in a 24- hour time span. These medications can be addictive, so please take as few as possible to achieve adequate pain control. These meds can also be quite constipating, recommend that you increase your oral fluid intake and take a stool softener like MiraLAX while taking these medications. Do not drive while taking this medication. You may keep the wound cleansed with warm soapy water, use topical bacitracin on the wound itself, and applied nonadherent gauze and wrapped the leg with a Coban type material to provide further wound management. Please return to the ER at any time if symptoms change or worsen. Sepsis Event Note (ED) - Evaluation Sepsis Screening Result: No Definite Risk - Focused Exam Vital Signs: Vital Signs Temp Pulse Resp BP Pulse Ox 12/11/20 12:52 97.4 F 103 H 16 132/100 H 99 - My Orders Last 24 Hours: My Active Orders 12/11/20 13:48 HYDROmorphone [Dilaudid] 0.5 mg IM ONETIME ONE - Assessment/Plan Last 24 Hours: My Active Orders 12/11/20 13:48 HYDROmorphone [Dilaudid] 0.5 mg IM ONETIME ONE
== END 2020-12-11 14:38 | disposition home or self-care (01) ==
LOC: JD.ED 12:17
DX: S80.811A Abrasion, right lower leg, initial encounter (principal); I10 Essential (primary) hypertension; E10.9 Type 1 diabetes mellitus without complications; E78.00 Pure hypercholesterolemia, unspecified; J45.909 Unspecified asthma, uncomplicated; Z88.0 Allergy status to penicillin; Z88.8 Allergy status to other drugs, medicaments and biological substances; Z88.1 Allergy status to other antibiotic agents; Z79.899 Other long term (current) drug therapy; W22.8XXA Striking against or struck by other objects, initial encounter
CPT/HCPCS: 96372; 99282; J1170; 99283

== ENCOUNTER 2021-01-22 12:22 | Emergency (ER) | payer BC ==
[2021-01-22 13:05] VITALS: BP 133/94; PULSE 97
--- NOTE | 2021-01-22 13:33 | EDM.PDOC ---
ED HPI GENERAL MEDICAL PROBLEM - General Chief Complaint: Lower Extremity Injury/Pain Stated Complaint: R FOOT INJURY Time Seen by Provider: 01/22/21 12:50 Source of Information: Reports: Patient, RN Notes Reviewed - History of Present Illness INITIAL COMMENTS - FREE TEXT/NARRATIVE: 45 yr old female injured R middle toe and 2 adjacent toes about 3 1/2 wks ago. Has had continued pain and swelling. Concerned that sx have not resolved and continuing to be a bother primarily with wt bearing. On her feet a lot with her work. Right Toe-Middle Pain Score (Numeric/FACES): 7 - Related Data Allergies Allergy/AdvReac Type Severity Reaction Status Date / Time adhesive Allergy Itching Verified 12/11/20 12:56 gatifloxacin Allergy Hives Verified 12/11/20 12:56 hydroxychloroquine Allergy Rash Verified 12/11/20 12:56 Penicillins Allergy Hives Verified 12/11/20 12:56 tetracaine [From Tetcaine] Allergy Hives Verified 12/11/20 12:56 Home Meds: Home Meds estradioL [Climara] 0.1 mg TOP SUWE 01/31/15 [History] Albuterol [Ventolin HFA] 2 puff .XX Q4HR PRN #1 inhaler 06/05/18 [Rx] Codeine/Promethazine [Phenergan with Codeine] 5 ml PO Q4HR PRN #240 ml 06/05/18 [Rx] Gabapentin [Neurontin] 600 mg PO BEDTIME 06/05/18 [History] Lisinopril/Hydrochlorothiazide [Lisinopril-HCTZ 10-12.5 MG] 1 tab PO DAILY 06/05/18 [History] Meloxicam 15 mg PO DAILY 06/05/18 [History] Simvastatin 20 mg PO BEDTIME 06/05/18 [History] metFORMIN [Glucophage XR] 500 mg PO BEDTIME 06/05/18 [History] metHOTREXate sodium [Methotrexate] 200 mg PO FR 06/05/18 [History] Etanercept [Enbrel] 1 dose SUBCUT WEEKLY 10/02/18 [History] dexAMETHasone [Dexamethasone] 4 mg PO BID 5 Days #10 tab 09/19/19 [Rx] Past Medical History HEENT History: Reports: Sinusitis Other HEENT History: Glasses, hearing aids Cardiovascular History: Reports: High Cholesterol, Hypertension 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 History: Reports: 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 History: Reports: RA Psychiatric History: Reports: Depression Endocrine/Metabolic History: Reports: Diabetes, Type I - Infectious Disease History Infectious Disease History: Reports: Chicken Pox - Past Surgical History HEENT Surgical History: Reports: Adenoidectomy, Naso-Sinus Surgery, Tonsillectomy GI Surgical History: Reports: Appendectomy, Bariatric Procedure Female Surgical History: Reports: Section, Hysterectomy Social & Family History - Tobacco Use Tobacco Use Status *Q: Never Tobacco User - Caffeine Use Caffeine Use: Reports: Soda, Tea - Recreational Drug Use Recreational Drug Use: No Review of Systems - Review of Systems Review Of Systems: See Below Constitutional: Reports: No Symptoms Mouth/Throat: Reports: No Symptoms Respiratory: Reports: No Symptoms GI/Abdominal: Reports: No Symptoms Musculoskeletal: Reports: Foot Pain, Joint Swelling Skin: Denies: Bruising Neurological: Reports: No Symptoms ED EXAM, GENERAL - Physical Exam Exam: See Below Exam Limited By: No Limitations General Appearance: Alert, No Apparent Distress Head: Atraumatic Neck: Supple Respiratory/Chest: No Respiratory Distress Extremities: Other (moderate tenderness MTP of 2nd, 3rd and 4th toes, mild swelling 3rd toe, no bruising or deformity, foot otherwise nontender) Skin Exam: Warm, Intact, Normal Color Course - Vital Signs Last Recorded V/S: Last Vital Signs Temp 96.9 F 01/22/21 13:00 Pulse 97 01/22/21 13:00 Resp 20 01/22/21 13:00 BP 133/94 H 01/22/21 13:00 Pulse Ox 100 01/22/21 13:00 - Re-Assessments/Exams Free Text/Narrative Re-Assessment/Exam: 01/22/21 15:25 Probable hairline lucency vs vascular groove proximal phalynx 3rd toe. Radiologist is calling this a fx. Unsure at time of discharge. Did call and notify patient as soon as report became available. Discharge instr. as documented. Departure - Departure Time of Disposition: 13:31 Disposition: Home, Self-Care 01 Condition: Fair Clinical Impression: Toe fracture, right Qualifiers: Encounter type: initial encounter Toe: lesser toe Fracture type: closed Phalanx: proximal Fracture alignment: nondisplaced Qualified Code(s): S92.514A - Nondisplaced fracture of proximal phalanx of right lesser toe(s), initial encounter for closed fracture - Discharge Information Instructions: Contusion, [id number] Referrals: Susy Duarte MD [Primary Care Provider] - Forms: ED Department Discharge Additional Instructions: Rest and elevate foot as much as possible, use hard soled shoe as much as possible. Manny tape toes as needed. Tyelnol or ibuprofen as needed. Avoid further injury. Sx should resolve over the next 2 to 3 wks. Sepsis Event Note (ED) - Evaluation Sepsis Screening Result: No Definite Risk - Focused Exam Vital Signs: Vital Signs Temp Pulse Resp BP Pulse Ox 01/22/21 13:00 96.9 F 97 20 133/94 H 100
--- NOTE | 2021-01-22 13:58 | CR ---
Right foot: 4 portable views of the right foot were obtained. Comparison: Prior right calcaneus study of 05/09/17. Large plantar spur is seen which is stable from prior exam. Small calcification is noted off the dorsal talus which is stable. Bony density is noted off the inferior medial malleolus which appears old. Acute fracture is noted within the proximal phalanx of the third toe. No additional fracture or other abnormality is appreciated. Impression: 1. Fracture within the proximal phalanx of the third toe. 2. Plantar spur and other incidental findings. Diagnostic code #3
== END 2021-01-22 13:41 | disposition home or self-care (01) ==
LOC: JD.ED 12:22
DX: S92.514A Nondisplaced fracture of proximal phalanx of right lesser toe(s), initial encounter for closed fracture (principal); E78.00 Pure hypercholesterolemia, unspecified; I10 Essential (primary) hypertension; E10.9 Type 1 diabetes mellitus without complications; J45.909 Unspecified asthma, uncomplicated; Z79.899 Other long term (current) drug therapy; Z88.0 Allergy status to penicillin; Z91.048 Other nonmedicinal substance allergy status; Z88.1 Allergy status to other antibiotic agents; Z88.4 Allergy status to anesthetic agent; W22.8XXA Striking against or struck by other objects, initial encounter
CPT/HCPCS: 73630-26-RT; 73630-RT; 99283

== ENCOUNTER 2022-01-06 18:51 | Emergency (ER) | payer BC ==
[2022-01-06 19:42] VITALS: BP 153/87; PULSE 87
== END 2022-01-06 20:40 | disposition home or self-care (01) ==
LOC: JD.ED 18:51
DX: S61.052A Open bite of left thumb without damage to nail, initial encounter (principal); E78.00 Pure hypercholesterolemia, unspecified; I10 Essential (primary) hypertension; E10.9 Type 1 diabetes mellitus without complications; Z88.0 Allergy status to penicillin; Z91.048 Other nonmedicinal substance allergy status; Z88.1 Allergy status to other antibiotic agents; W54.0XXA Bitten by dog, initial encounter
CPT/HCPCS: 99283

== ENCOUNTER 2022-09-16 16:32 | Emergency (ER) | payer BC ==
[2022-09-16 16:46] VITALS: BP 178/93; PULSE 104
== END 2022-09-16 17:57 | disposition home or self-care (01) ==
LOC: JD.ED 16:32
DX: H65.02 Acute serous otitis media, left ear (principal); E78.00 Pure hypercholesterolemia, unspecified; I10 Essential (primary) hypertension; E10.9 Type 1 diabetes mellitus without complications; Z91.048 Other nonmedicinal substance allergy status; Z88.0 Allergy status to penicillin; Z88.1 Allergy status to other antibiotic agents; Z79.899 Other long term (current) drug therapy; Z79.84 Long term (current) use of oral hypoglycemic drugs; Z90.49 Acquired absence of other specified parts of digestive tract
CPT/HCPCS: 99282

== ENCOUNTER 2024-02-24 17:12 | Inpatient (IN) | payer BC ==
[2024-02-24 18:00] LABS: BASOPHILS PERCENT AUTO 0.2 % (0.0-1.0); EOSINOPHILS PERCENT AUTO 0.1 % (0.0-6.0); HEMATOCRIT 42.9 % (37.0-47.0); HEMOGLOBIN 14.1 gm/dl (12.0-16.0); IMMATURE GRAN ABSOLUTE AUTO 0.03 K/mm3 (0.00-0.05); IMMATURE GRAN PERCENT AUTO 0.3 % (0.0-0.4); LYMPHOCYTES ABSOLUTE AUTO 0.4 K/mm3 (1.0-4.8); LYMPHOCYTES PERCENT AUTO 3.2 % (24.0-44.0); MEAN CORPUSCULAR HEMOGLOBIN 29.7 pg (28.0-32.0); MEAN CORPUSCULAR HGB CONC 32.9 g/dl (32.0-36.0); MEAN CORPUSCULAR VOLUME 90.5 fl (83.0-99.0); MONOCYTES ABSOLUTE AUTO 0.4 K/mm3 (0.0-0.8); MONOCYTES PERCENT AUTO 3.3 % (0.0-8.0); NEUTROPHILS ABSOLUTE AUTO 10.7 K/mm3 (1.8-7.7); NEUTROPHILS PERCENT AUTO 92.9 % (41.0-71.0); PLATELET COUNT,PLT 249 K/mm3 (150-400); RED BLOOD CELL COUNT 4.74 M/mm3 (4.10-5.30); WHITE BLOOD CELL COUNT,WBC 11.48 K/mm3 (3.9-11.3)
[2024-02-24 18:24] LABS: PROTHROMBIN TIME 10.7 SECONDS (9.7-12.0); SLIDE REVIEW ABNORMAL SMEAR
[2024-02-24 18:25] LABS: PTT,PARTIAL THROMBOPLSTIN TIME 28.5 SECONDS (21.7-31.4)
[2024-02-24 18:31] LABS: LACTIC ACID 1.1 mmol/L (0.4-2.0)
[2024-02-24 18:37] LABS: ALBUMIN 3.7 g/dl (3.4-5.0); ANION GAP 16.7 (5-15); BILIRUBIN TOTAL 0.8 mg/dL (0.2-1.0); C-REACTIVE PROTEIN 5.85 mg/dL (<0.30); CALCIUM 8.8 mg/dL (8.5-10.1); EST CRCL DRUG DOSING (CG) 55.68 mL/min; MAGNESIUM 1.6 mg/dL (1.8-2.4); PHOSPHORUS 3.2 mg/dL (2.6-4.7); POTASSIUM,K 3.7 mEq/L (3.5-5.1); PROTEIN TOTAL,TP 7.4 g/dl (6.4-8.2)
[2024-02-24] MEDS: Iopamidol 612 MG/ML 100 ML Bottle IVPUSH ONE (18:38)
[2024-02-24] MEDS: Hydrocortisone Sodium Succinate 100 MG/2 ML SDV IVPUSH ONE (18:40)
[2024-02-24] MEDS: Ondansetron 4 MG/2 ML SDV IVPUSH ONE (18:40)
[2024-02-24] MEDS: Sodium Chloride 0.9% 1,000 ML IV ONE (18:40)
[2024-02-24] MEDS ORDERED: Albuterol 6.7 GM Inhaler INH PRN ×2 (19:32→21:39)
[2024-02-24 20:01] LABS: TSH 0.473 uIU/mL (0.358-3.74)
[2024-02-24 20:38] LABS: APPEARANCE,URINE CLEAR (Clear); BILIRUBIN,URINE NEGATIVE (Negative); COLOR,URINE YELLOW (Yellow); GLUCOSE,URINE NEGATIVE (Negative); KETONES,URINE NEGATIVE (Negative); LEUKOCYTE ESTERASE,URINE NEGATIVE (Negative); NITRITE,URINE NEGATIVE (Negative); OCCULT BLOOD,URINE NEGATIVE (Negative); PH,URINE 5.5 (5.0-8.0); PROTEIN,URINE TRACE (Negative); UROBILINOGEN,URINE 0.2 (0.2-1.0)
[2024-02-24 20:49] LABS: BACTERIA,URINE FEW /hpf (FEW); MUCUS,URINE MODERATE /hpf (FEW); RBC,URINE 0-5 /hpf (0-5); WBC,URINE 0-5 /hpf (0-5)
[2024-02-24 20:50] LABS: YEAST BUDDING,URINE RARE (NOT SEEN)
[2024-02-24] MEDS: Hydrocortisone Sodium Succinate 100 MG/2 ML SDV IVPUSH SCH (22:02)
[2024-02-24] MEDS: Pantoprazole 40 MG Vial IVPUSH SCH (22:02)
[2024-02-24] MEDS: Gabapentin 300 MG Cap PO SCH (22:02)
[2024-02-24] MEDS: Magnesium Sulfate/Water 2 GM/50 ML BAG IV ONE (22:03)
[2024-02-24] MEDS: Sodium Chloride 0.9% 1,000 ML IV SCH (22:04)
[2024-02-24] MEDS: methylPREDNISolone Sodium Succinate 125 MG/2 ML SDV IVPUSH ONE (22:05)
[2024-02-25 09:29] LABS: HEMATOCRIT 38.2 % (37.0-47.0); HEMOGLOBIN 12.5 gm/dl (12.0-16.0); MEAN CORPUSCULAR HGB CONC 32.7 g/dl (32.0-36.0); MEAN CORPUSCULAR VOLUME 91.6 fl (83.0-99.0); MEAN PLATELET VOLUME 10.2 fl (9.4-12.3); PLATELET COUNT,PLT 225 K/mm3 (150-400); RED BLOOD CELL COUNT 4.17 M/mm3 (4.10-5.30); WHITE BLOOD CELL COUNT,WBC 6.54 K/mm3 (3.9-11.3)
[2024-02-25] MEDS: Acetaminophen 325 MG Tab PO PRN (09:39)
[2024-02-25 09:42] LABS: ALBUMIN 3.2 g/dl (3.4-5.0); BILIRUBIN TOTAL 0.5 mg/dL (0.2-1.0); CALCIUM 8.4 mg/dL (8.5-10.1); EST CRCL DRUG DOSING (CG) 55.68 mL/min; PROTEIN TOTAL,TP 6.5 g/dl (6.4-8.2)
[2024-02-25 09:44] LABS: HEMOGLOBIN A1C 5.8 %
[2024-02-25] MEDS: Insulin Lispro 100 Unit/ML 3 ML KwikPen SUBCUT SCH (12:12)
[2024-02-26 05:39] LABS: ANION GAP 14.1 (5-15); BUN/CREATININE RATIO 18.9 (14-18); CALCIUM 8.2 mg/dL (8.5-10.1); CREATININE 0.9 mg/dL (0.55-1.02); EST CRCL DRUG DOSING (CG) 61.86 mL/min; POTASSIUM,K 4.1 mEq/L (3.5-5.1)
[2024-02-26 05:44] LABS: HEMATOCRIT 34.4 % (37.0-47.0); HEMOGLOBIN 11.2 gm/dl (12.0-16.0); MEAN CORPUSCULAR HEMOGLOBIN 29.9 pg (28.0-32.0); MEAN CORPUSCULAR HGB CONC 32.6 g/dl (32.0-36.0); PLATELET COUNT,PLT 194 K/mm3 (150-400); RED BLOOD CELL COUNT 3.74 M/mm3 (4.10-5.30); WHITE BLOOD CELL COUNT,WBC 6.09 K/mm3 (3.9-11.3)
[2024-02-26 09:29] VITALS: PULSE 70
[2024-02-26 12:11] VITALS: BP 139/71
[2024-02-26] MEDS ORDERED: predniSONE 10 MG Tab PO SCH (12:30)
[2024-02-27 19:42] LABS: ACTH 1.8 pg/mL (7.2-63.3)
[2024-02-29 08:47] LABS: A/RA RATIO CALCULATION 1.2 ratio (<=25.0); RENIN 7.4 ng/mL/hr
== END 2024-02-26 13:30 | disposition home or self-care (01) | DRG 424 ==
LOC: JD.ED 17:12 → JD.MS 19:02 → JD.ICU 21:43
PROVIDERS: ADMIT Internal Medicine; ATTEND Internal Medicine
DX: E27.2 Addisonian crisis (principal); E24.9 Cushing's syndrome, unspecified; E89.6 Postprocedural adrenocortical (-medullary) hypofunction; E78.00 Pure hypercholesterolemia, unspecified; I10 Essential (primary) hypertension; J45.909 Unspecified asthma, uncomplicated; M06.9 Rheumatoid arthritis, unspecified; F32.A Depression, unspecified; E83.42 Hypomagnesemia; R19.7 Diarrhea, unspecified; E10.9 Type 1 diabetes mellitus without complications; Z90.89 Acquired absence of other organs; Z98.890 Other specified postprocedural states; Z98.84 Bariatric surgery status; Z90.49 Acquired absence of other specified parts of digestive tract; Z98.891 History of uterine scar from previous surgery; Z90.710 Acquired absence of both cervix and uterus; Z79.52 Long term (current) use of systemic steroids; Z88.0 Allergy status to penicillin; Z91.048 Other nonmedicinal substance allergy status; Z88.8 Allergy status to other drugs, medicaments and biological substances; Z79.51 Long term (current) use of inhaled steroids; Z79.899 Other long term (current) drug therapy; Z97.4 Presence of external hearing-aid
CPT/HCPCS: 36415; 74177; 74177-26; 80048; 80053; 81001; 82024; 82088; 82533; 82947; 83036; 83605; 83690; 83735; 84100; 84244; 84443; 85025; 85027; 85610; 85730; 86140; 96374; 96375; 99284; 99285-25; A9270-GY; C9113; J1720; J2405; J3475; J7030; Q9967

== ENCOUNTER 2024-04-28 16:54 | Emergency (ER) | payer BC ==
[2024-04-28 19:11] VITALS: BP 162/103; PULSE 81
== END 2024-04-28 21:40 | disposition home or self-care (01) ==
LOC: JD.ED 16:54
DX: S00.03XA Contusion of scalp, initial encounter (principal); S13.9XXA Sprain of joints and ligaments of unspecified parts of neck, initial encounter; I10 Essential (primary) hypertension; E78.00 Pure hypercholesterolemia, unspecified; J45.909 Unspecified asthma, uncomplicated; Z90.49 Acquired absence of other specified parts of digestive tract; Z90.710 Acquired absence of both cervix and uterus; Z79.899 Other long term (current) drug therapy; Z88.0 Allergy status to penicillin; Z88.8 Allergy status to other drugs, medicaments and biological substances; Z91.048 Other nonmedicinal substance allergy status; W22.8XXA Striking against or struck by other objects, initial encounter
CPT/HCPCS: 70450; 70450-26; 72125; 72125-26; 99283